=== PATIENT | male | born 2000 | race Hispanic/Latino ===

== ENCOUNTER 2020-06-29 07:12 | Emergency (ER) | payer OTHER ==
[~2020-06-29] VITALS: Ht 167.6 cm; Wt 85.5 kg
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
[2020-06-29] MEDS ORDERED: NAPR-837 PO (08:10)
[2020-06-29 08:41] VITALS: BP 122/81
== END 2020-06-29 08:42 | disposition home or self-care (01) ==
LOC: M ED 07:12
DX: R68.84 Jaw pain (principal); F17.200 Nicotine dependence, unspecified, uncomplicated